=== PATIENT | female | born 1990 | race Hispanic/Latino ===

== ENCOUNTER 2017-12-22 12:58 | Observation (INO) | payer MEDICAID ==
[~2017-12-22] VITALS: Ht 152.4 cm; Wt 92.5 kg
[2017-12-22 13:34] LABS: APPEARANCE,URINE CLEAR (CLEAR); BILIRUBIN,URINE NEGATIVE (NEGATIVE); COLOR,URINE YELLOW (YELLOW); GLUCOSE, URINE (UA) >=1000 mg/dL (NEGATIVE); KETONES,URINE 15 mg/dL (NEGATIVE); LEUKOCYTE ESTERASE ,URINE NEGATIVE (NEGATIVE); NITRATE,URINE POSITIVE (NEGATIVE); OCCULT BLOOD,URINE NEGATIVE (NEGATIVE); PROTEIN,URINE TRACE (NEGATIVE); UROBILINOGEN,URINE 0.2 mg/dL (0.2-1.0)
[2017-12-22 13:45] LABS: BACTERIA,URINE Rare /HPF (None Seen); RBC,URINE None Seen /HPF (0-1); SQUAMOUS EPITHELIAL CELL,UR Few /HPF (0-2); WBC,URINE 0-1 /HPF (0-1)
[2017-12-22] MEDS ORDERED: CEFAZOLIN 2GM / 50 ML 50 ML IV SCH (15:00)
[2017-12-22] MEDS: CEFAZOLIN SODIUM 1 GM VIAL IVP SCH ×2 (15:41→23:01)
[2017-12-22 19:30] VITALS: BP 100/52
[2017-12-22] MEDS: INSULIN HUMULIN R 100 UNIT/ML 3ML SQ SCH ×2 (21:00→21:36)
[2017-12-22] MEDS: LACTATED RINGERS 1000ML 1,000 ML IV SCH ×2 (23:00→23:11)
[2017-12-22 23:40] VITALS: BP 116/65
[2017-12-23 03:46] VITALS: BP 107/63
[2017-12-23] MEDS: CEFAZOLIN SODIUM 1 GM VIAL IVP SCH (07:03)
[2017-12-23] MEDS: LACTATED RINGERS 1000ML 1,000 ML IV SCH (07:03)
[2017-12-23] MEDS: INSULIN HUMULIN R 100 UNIT/ML 3ML SQ SCH ×2 (07:27→11:57)
[2017-12-23 07:36] VITALS: BP 112/57
[2017-12-23 11:18] VITALS: BP 123/65
[2017-12-23] MEDS ORDERED: FLUCONAZOLE 100 MG TAB PO SCH (12:30)
[2017-12-23] MEDS ORDERED: PREN1COM14 PO (13:50)
== END 2017-12-23 14:45 | disposition home or self-care (01) ==
LOC: EDH 12:58 → LDH 13:16 → WSH 14:47
PROVIDERS: ADMIT Obstetrics & Gynecology; ATTEND Obstetrics & Gynecology
DX: O26.853 Spotting complicating pregnancy, third trimester (principal); R10.2 Pelvic and perineal pain; O24.12 Pre-existing type 2 diabetes mellitus, in childbirth; O99.343 Other mental disorders complicating pregnancy, third trimester; F84.0 Autistic disorder; Z87.891 Personal history of nicotine dependence; Z90.49 Acquired absence of other specified parts of digestive tract; Z3A.29 29 weeks gestation of pregnancy
CPT/HCPCS: 81001; 82948 ×4; 87088; 96361 ×2; 96372 ×2; 96374; 96376 ×2; 99285; A4218 ×3; G0378 ×25; J0690 ×4; J1815 ×3; J7120 ×2

== ENCOUNTER 2018-06-19 08:32 | Emergency (ER) | payer MEDICAID ==
[~2018-06-19 08:32] MED LIST: PREN1COM14 PO
[2018-06-19] MEDS ORDERED: ONDANSETRON HCL 4 MG/2 ML VIAL ONE (08:53)
[2018-06-19 08:56] LABS: APPEARANCE,URINE Turbid (CLEAR); BILIRUBIN,URINE Negative (NEGATIVE); COLOR,URINE Yellow (YELLOW); GLUCOSE, URINE (UA) >=1000 mg/dL (NEGATIVE); KETONES,URINE Trace mg/dL (NEGATIVE); LEUKOCYTE ESTERASE ,URINE Small (NEGATIVE); NITRATE,URINE Positive (NEGATIVE); OCCULT BLOOD,URINE Large (NEGATIVE); PROTEIN,URINE POS 2+ (NEGATIVE); UROBILINOGEN,URINE 0.2 mg/dL (0.2-1.0)
[2018-06-19 08:58] LABS: HCG,QUAL RESULT NEGATIVE (NEGATIVE)
[2018-06-19 09:04] LABS: BASOPHILS % (AUTO) 0.2 % (0.0-5.0); EOSINOPHILS % (AUTO) 0.7 % (0.0-8.0); HEMATOCRIT 39.2 % (36-48); LYMPHOCYTES % (AUTO) 24.7 % (21.0-51.0); MEAN CORPUSCULAR HEMOGLOBIN 24.5 pg (27.0-33.0); MEAN CORPUSCULAR HGB CONC 32.3 g/dL (32.0-36.0); MEAN CORPUSCULAR VOLUME 75.7 fL (79-99); NEUTROPHILS % (AUTO) 70.4 % (40.0-77.0); PLATELET COUNT (AUTO) 398 K/uL (130-400); RED BLOOD CELL COUNT(AUTO) 5.18 MIL/uL (4.00-5.50); RED CELL DISTRIBUTION WIDTH 15.9 % (11.0-15.5)
[2018-06-19 09:09] LABS: CREATININE 0.5 mg/dL (0.5-1.5); POTASSIUM 3.6 mmol/L (3.5-5.1)
[2018-06-19 09:13] LABS: BACTERIA,URINE Moderate /HPF (None Seen); RBC,URINE TNTC /HPF (0-1); WBC,URINE 26-50 /HPF (0-1)
[2018-06-19 09:13] LABS: BILIRUBIN,TOTAL 0.2 mg/dL (0.2-1.0); TOTAL PROTEIN, SERUM 9.2 g/dL (6.0-8.3)
[2018-06-19] MEDS ORDERED: KETOROLAC TROMETHAMINE 30MG/ML ONE (09:15)
[2018-06-19 09:27] LABS: AMPHET/METH SCREEN,URINE POSITIVE (NEGATIVE); BARBITURATE SCREEN, URINE NEGATIVE (NEGATIVE); BENZODIAZEPINES SCREEN,URINE NEGATIVE (NEGATIVE); CANNABINOID SCREEN,URINE NEGATIVE (NEGATIVE); COCAINE SCREEN,URINE NEGATIVE (NEGATIVE); OPIATE SCREEN,URINE NEGATIVE (NEGATIVE); PHENCYCLIDINE SCREEN,URINE NEGATIVE (NEGATIVE)
== END 2018-06-19 11:00 | disposition home or self-care (01) ==
LOC: EDH 08:32
DX: N12 Tubulo-interstitial nephritis, not specified as acute or chronic (principal); R31.9 Hematuria, unspecified; E11.9 Type 2 diabetes mellitus without complications; F90.9 Attention-deficit hyperactivity disorder, unspecified type; Z90.49 Acquired absence of other specified parts of digestive tract; Z98.890 Other specified postprocedural states; Z72.0 Tobacco use
CPT/HCPCS: 36415; 74176; 80053; 80305; 81001; 81025; 83690; 85025; 96374; 96375; 99285; J1885; J2405

== ENCOUNTER 2019-06-29 21:41 | Emergency (ER) | payer MEDICAID | END 2019-06-29 23:21 | disposition home or self-care (01) | LOC: EDH 21:41 | DX: N60.12 Diffuse cystic mastopathy of left breast (principal); E11.9 Type 2 diabetes mellitus without complications; F90.9 Attention-deficit hyperactivity disorder, unspecified type; Z90.49 Acquired absence of other specified parts of digestive tract; Z72.0 Tobacco use; Z88.6 Allergy status to analgesic agent; Z98.890 Other specified postprocedural states ==